=== PATIENT | female | born 2000 | race Caucasian/White ===

== ENCOUNTER 2022-01-06 21:54 | Emergency (ER) | payer OTHER ==
[2022-01-06] MEDS ORDERED: Acetaminophen 500 MG TAB ONE (22:09)
[2022-01-06] MEDS ORDERED: Ondansetron PF 4 MG/2 ML Vial ONE (22:09)
[2022-01-06] MEDS ORDERED: cefTRIAXone\\ROCEPHIN 1 GM VIAL ONE (22:10)
[2022-01-06 22:44] LABS: #Monocytes 0.4 10x3/uL (0.0-1.1); #Neutrophils 6.9 10x3/uL (1.5-8.4); %Basophils 0.1 % (0.0-2.0); %Eosinophils 0.1 % (0.0-6.0); %Lymphocytes 23.6 % (18.0-47.0); %Monocytes 4.6 % (0.0-10.0); %Neutrophils 71.3 % (40.0-75.0); Hemoglobin 13.1 g/dL (12.0-15.5); Mean Corpuscular HGB CONC 32.9 g/dL (32.0-36.0); Mean Corpuscular Hemoglobin 27.9 pg (27.0-33.0); Mean Corpuscular Volume 84.9 fl (81.6-98.3); Platelet Count 320 10x3/uL (150-450); RBC Distribution Width 13.3 % (11.5-14.5); Red Blood Cell (RBC) Count 4.69 10x6/uL (3.90-5.03); White Blood Cell (WBC) Count 9.7 10x3/uL (3.5-10.5)
[2022-01-06 22:47] LABS: BHCG - Serum Negative (NEGATIVE); Pregs Control Background? CLEAR/WHITE (CLR/WHITE); Pregs Control Bar Appear? YES (CONTROL BAR)
[2022-01-06 22:48] LABS: Bilirubin 1+ (Negative); Blood, Urine Negative (Negative); Clarity Clear (Clear); Glucose, Urine (Dipstick) Normal (Negative); Ketone, Urine Negative (Negative); Leukocyte 25 (Negative); Nitrite Positive (Negative); Protein, Urine (Dipstick) Negative (Neg-Trace); Specific Gravity, Urine 1.015 (1.002-1.036)
[2022-01-06 22:54] LABS: ALT (SGPT) 15 U/L (8-55); AST (SGOT) 18 U/L (5-30); Albumin 3.8 g/dL (3.5-5.0); Alkaline Phosphatase 71 U/L (40-100); Anion Gap 13 mmol/L (10-20); BUN (Urea Nitrogen) 7 mg/dL (8.4-21.0); Bilirubin, Total 0.4 mg/dL (0.2-1.2); Calc. Creatinine Clearance 0 mL/min (70-130); Calcium 9.7 mg/dL (7.8-10.44); Carbon Dioxide 24 mmol/L (22-29); Chloride 103 mmol/L (98-107); Globulin 3.5 g/dL (2.4-3.5); Glucose 115 mg/dL (70-105); Potassium 3.9 mmol/L (3.5-5.1); Protein, Total 7.3 g/dL (6.0-8.3); Sodium 136 mmol/L (136-145)
[2022-01-06 23:00] LABS: Bacteria/HPF 1+ HPF (None Seen); RBC/HPF 0-3 HPF (0-3); Squamous Epithelial 0-3 HPF (0-3)
[2022-01-06] MEDS ORDERED: Sulfameth/Trimethoprim DS 800-160mg TAB ONE (23:25)
== END 2022-01-06 23:52 | disposition home or self-care (01) ==
LOC: CSHERS 21:54
DX: N39.0 Urinary tract infection, site not specified (principal)
CPT/HCPCS: 36415; 51701; 74177; 80053; 81003; 81015; 83605; 84703; 85025; 87040; 87086; 93005; 96374; 96375; J0696; J2405